=== PATIENT | male | born 1970 | race Hispanic/Latino ===

== ENCOUNTER 2017-02-10 12:14 | Emergency (ER) | payer MEDICAID, OTHER ==
[2017-02-10 12:14] VITALS: BMI 28.3
--- NOTE | 2017-02-10 13:02 | ED PDOC ---
Arrival/HPI <Juan Puri - Last Filed: 02/10/17 15:39> - General Historian: Patient, Spouse - History of Present Illness Time/Duration: < week Symptom Onset: Sudden Symptom Course: Unchanged Quality: Aching, Cramping Severity Level: Mild, Moderate Context: Home <Cassia Garcia - Last Filed: 02/10/17 15:46> - General Chief Complaint: Male Genitourinary Time Seen by Provider: 02/10/17 12:31 - History of Present Illness Narrative History of Present Illness (Text): 02/10/17 12:48 46M w/no sig PMH evaluated for L groin pain & L testicle swelling x 4 days. Pt noted L sided testicular swelling upon self examination, pain with movement/ pressure/loose underwear. Pain shoots into lower abdomen, mild-moderate intensity, crampy in nature. Denies dysuria, hematuria, urinary frequency, penile d/c, back pain, N/V/F/C, SOB, CP, other complaints. PMH: Denies PSH: Denies All: NKDA SH: Admits to tobacco use, 1ppd x 30 yrs; admits to ETOH use- 6 pk/wk; denies illicit drug use; sexually active with only his PMD: Barbara (Cassia Garcia) Past Medical History - Provider Review Nursing Documentation Reviewed: Yes - Past History Past History: No Previous - Infectious Disease Hx of Infectious Diseases: None - Tetanus Immunization Tetanus Immunization: Up to Date - Past Medical History Past Medical History: No Previous - Psychiatric Hx Depression: No Hx Emotional Abuse: No Hx Physical Abuse: No Hx Substance Use: No - Past Surgical History Past Surgical History: No Previous - Suicidal Assessment Feels Threatened In Home Enviroment: No <Cassia Garcia - Last Filed: 02/10/17 15:46> Family/Social History - Physician Review Nursing Documentation Reviewed: Yes Family/Social History: No Known Family HX Hx Substance Use: No <Cassia Garcia - Last Filed: 02/10/17 15:46> Allergies/Home Meds <Juan Puri - Last Filed: 02/10/17 15:39> <Cassia Garcia - Last Filed: 02/10/17 15:46> Allergies/Adverse Reactions: Allergies No Known Allergies Allergy (Verified 08/24/12 18:06) Review of Systems - Physician Review All systems were reviewed & negative as marked: Yes - Review of Systems Constitutional: Normal. absent: Fatigue Eyes: Normal. absent: Vision Changes ENT: Normal. absent: Sore Throat Respiratory: Normal. absent: SOB Cardiovascular: Normal. absent: Chest Pain Gastrointestinal: Normal. absent: Abdominal Pain, Constipation, Diarrhea, Nausea, Vomiting Genitourinary Male: Normal. absent: Dysuria, Frequency, Hematuria, Urinary Output Changes Musculoskeletal: Normal. absent: Back Pain Skin: Normal. absent: Cellulitis Neurological: Normal. absent: Headache <Cassia Garcia - Last Filed: 02/10/17 15:46> Physical Exam Vital Signs Reviewed: Yes Temperature: Afebrile Pulse: Tachycardic Respiratory Rate: Normal Appearance: Positive for: Non-Toxic Pain Distress: None Mental Status: Positive for: Alert and Oriented X 3 - Systems Exam Head: Present: Atraumatic, Normocephalic Extroacular Muscles: Present: EOMI Mouth: Present: Moist Mucous Membranes Nose (External): Present: Atraumatic Neck: Present: Normal Range of Motion Respiratory/Chest: Present: Clear to Auscultation, Good Air Exchange. No: Respiratory Distress, Accessory Muscle Use Cardiovascular: Present: Normal S1, S2, Tachycardic. No: Murmurs Abdomen: Present: Normal Bowel Sounds. No: Tenderness, Distention, Peritoneal Signs, Rebound, Guarding, Hernias Genitourinary Male: Present: Testicle Tenderness (left), Erythema (over left testicle), Testicle Swelling (left). No: Penile Discharge, Penile Swelling, Hernias Upper Extremity: Present: Normal Inspection. No: Cyanosis, Edema Lower Extremity: Present: Normal Inspection. No: Edema Neurological: Present: GCS=15, CN II-XII Intact, Speech Normal Skin: Present: Warm, Dry, Normal Color. No: Rashes Psychiatric: Present: Alert, Oriented x 3, Normal Insight, Normal Concentration <Cassia aGrcia - Last Filed: 02/10/17 15:46> Vital Signs Temp Pulse Resp BP Pulse Ox 02/10/17 14:03 98 H 18 138/75 99 02/10/17 12:14 98.3 F 107 H 18 98 Medical Decision Making - Lab Interpretations I have reviewed the lab results: Yes - RAD Interpretation Gig Tender: Radiologist <Juan Puri - Last Filed: 02/10/17 15:39> - Lab Interpretations I have reviewed the lab results: Yes - RAD Interpretation Gig Tender: Radiologist <Cassia Garcia - Last Filed: 02/10/17 15:46> ED Course and Treatment: 02/10/17 In agreement with resident note, which includes further HPI details. Patient was seen and evaluated with resident, came up with plan and treatment together. Patient is a 46 year old male, who reports having testicular pain and swelling for the past 4 days. On exam, there is no inguinal hernia noted. Denies trauma. Denies unprotected sex. He reports single partner.He has mild scrotal swelling and a firm mass which is palpated in inferior portion of left testicle. Patient denies fever, chills, weight loss, night sweats, dysuria, hematuria, or abdominal pain. The plan is to obtain ultrasound and urology consultation. 02/10/17 15:39 Ultrasound report reviewed with patient. Stressed need for urology follow-up, on -call urologist paged and he will be given follow-up numbers. Limitations of ultrasound reviewed with patient, stressed need for follow-up for any worsening of new or persistent symptoms. (Juan Puri) 02/10/17 13:10 Pt seen/evaluated with attending, will evaluate for infection vs. torsion vs. mass of L testicle 02/10/17 14:04 Pt taken to U/S for evaluation. 02/10/17 15:30 U/s positive for epididymitis- will d/c on antibiotic w/referral to urology. ( Cassia Garcia) - Lab Interpretations Lab Results: 02/10/17 13:43 02/10/17 13:43 Lab Results 02/10/17 13:43: Sodium 143, Potassium 4.1, Chloride 104, Carbon Dioxide 27, Anion Gap 16, BUN 15, Creatinine 0.8, Est GFR ( Amer) > 60, Est GFR (Non- Af Amer) > 60, Random Glucose 89, Calcium 10.2, Total Bilirubin 0.7, AST 42, ALT 33, Alkaline Phosphatase 106, Total Protein 8.0, Albumin 4.5, Globulin 3.5, Albumin/Globulin Ratio 1.3 02/10/17 13:43: Urine Color Straw, Urine Appearance Clear, Urine pH 6.0, Ur Specific Mora <= 1.005, Urine Protein Negative, Urine Glucose (UA) Negative, Urine Ketones Negative, Urine Blood Moderate H, Urine Nitrate Negative, Urine Bilirubin Negative, Urine Urobilinogen 0.2, Ur Leukocyte Esterase Negative, Urine RBC 0 - 2, Urine WBC 0 - 2, Ur Epithelial Cells 0 - 2, Urine Bacteria Neg 02/10/17 13:43: WBC 8.4, RBC 5.00, Hgb 15.8, Hct 43.6, MCV 87.2, MCH 31.6, MCHC 36.2, RDW 13.1, Plt Count 293, MPV 8.5, Gran % 64.9, Lymph % (Auto) 23.9, Jones % (Auto) 6.7 H, Eos % (Auto) 3.8, Baso % (Auto) 0.7, Gran # 5.43, Lymph # 2.0, Jones # 0.6, Eos # 0.3, Baso # 0.06 - RAD Interpretation Narrative RAD Interpretations (Text): 02/10/17 15:3 No intratesticular pathology. Abnormal left epididymal tail -consistent with epididymitis. Incidental right epididymal head small cyst Bilateral hydroceles (Cassia Garcia) Radiology Orders: 02/10/17 13:03 TESTES DUPLEX COMPLETE [US] Stat - Medication Orders Current Medication Orders: Levofloxacin (Levaquin) 500 mg PO STAT STA Stop: 02/10/17 15:43 Discontinued Medications Ibuprofen (Motrin Tab) 600 mg PO STAT STA Stop: 02/10/17 13:06 Last Admin: 02/10/17 15:41 Dose: MAR Pain/Vitals Document 02/10/17 15:41 AB (Rec: 02/10/17 15:41 AB [id number]) Pain Reassessment Is This A Pain ReAssessment? No Presence of Pain Presence of Pain No - PA / HEALTH CARE LIAISON / Resident Statement MD/DO has reviewed & agrees with the documentation as recorded. MD/DO has examined the patient and agrees with the treatment plan. - Scribe Statement The provider has reviewed the documentation as recorded by the Scribe <Juan Puri - Last Filed: 02/10/17 15:39> <Cassia Garcia - Last Filed: 02/10/17 15:46> - Scribe Statement Mony Carter Provider Scribe Attestation: All medical record entries made by the Scribe were at my direction and personally dictated by me. I have reviewed the chart and agree that the record accurately reflects my personal performance of the history, physical exam, medical decision making, and the department course for this patient. I have also personally directed, reviewed, and agree with the discharge instructions and disposition. (Juan Puri) Disposition/Present on Arrival <Juan Puri - Last Filed: 02/10/17 15:39> - Present on Arrival Any Indicators Present on Arrival: No History of DVT/PE: No History of Uncontrolled Diabetes: No Urinary Catheter: No History Surgical Site Infection Following: None - Disposition Have Diagnosis and Disposition been Completed?: Yes Disposition Time: 15:29 Patient Plan: Discharge <Cassia Garcia - Last Filed: 02/10/17 15:46> - Disposition Diagnosis: Epididymitis Disposition: HOME/ ROUTINE Patient Problems: Current Active Problems Problem Status Onset Left ankle sprain Acute Condition: STABLE Discharge Instructions (ExitCare): Epididymitis (ED), Epididymo-orchitis (ED), Testicle Pain (ED) Prescriptions: Levofloxacin [Levaquin] 500 mg PO DAILY #9 tablet Naproxen [Naprosyn] 250 mg PO Q4H PRN #28 tablet PRN Reason: Pain, Moderate (4-7) Referrals: Ezekiel Jimenez MD [Primary Care Provider] - Follow up with primary [facility] [Outside] - Follow up with primary Petar Hardin MD [Staff Provider] - Follow up with primary Forms: [facility] [facility] (B[place]i), WORK NOTE
[2017-02-10 13:46] LABS: BASO # 0.06 K/mm3 (0.0-2.0); BASO % 0.7 % (0.0-3.0); EOS # 0.3 (0.0-0.7); EOS % 3.8 % (1.5-5.0); GRAN # 5.43 (1.4-6.5); GRAN % 64.9 % (50.0-68.0); HEMATOCRIT 43.6 % (42.0-52.0); LYMPH % 23.9 % (22.0-35.0); MEAN CELL VOLUME 87.2 fl (80.0-105.0); MEAN CORPUSCULAR HEMOGLOBIN 31.6 pg (25.0-35.0); MEAN CORPUSCULAR HGB CONC 36.2 g/dl (31.0-37.0); MEAN PLATELET VOLUME 8.5 fl (7.0-11.0); MONO # 0.6 (0.1-0.6); MONO % 6.7 % (1.0-6.0); RED CELL DISTRIBUTION WIDTH 13.1 % (11.5-14.5); WHITE BLOOD COUNT 8.4 10^3/ul (4.5-11.0)
[2017-02-10 13:47] LABS: URINE BILIRUBIN NEGATIVE (NEGATIVE); URINE BLOOD MODERATE (NEGATIVE); URINE GLUCOSE (UA) NEGATIVE (NEGATIVE); URINE KETONE NEGATIVE (NEGATIVE); URINE LEUKOCYTE ESTERASE NEGATIVE Leu/uL (NEGATIVE); URINE PROTEIN NEGATIVE mg/dL (<30 mg/dL); URINE UROBILINOGEN 0.2 E.U./dL (<1 E.U./dL)
[2017-02-10 13:50] LABS: URINE APPEARANCE CLEAR (CLEAR); URINE COLOR STRAW (YELLOW)
[2017-02-10 13:54] LABS: URINE BACTERIA NEG (NEG); URINE EPITHELIAL CELLS 0 - 2 /hpf (0-5); URINE RBC 0 - 2 /hpf (0-2); URINE WBC 0 - 2 /hpf (0-6)
[2017-02-10 13:56] LABS: ALB/GLOB RATIO 1.3 (1.1-1.8); ALKALINE PHOSPHATASE 106 U/L (38-126); ALT/SGPT 33 U/L (7-56); AST/SGOT 42 U/L (17-59); BILIRUBIN,TOTAL 0.7 mg/dL (0.2-1.3); BLOOD UREA NITROGEN 15 mg/dL (7-21); CALCIUM 10.2 mg/dL (8.4-10.5); CARBON DIOXIDE 27 mmol/L (21-33); CHLORIDE 104 mmol/L (98-107); GFR AFRICAN-AMERICAN > 60; GLUCOSE,RANDOM 89 mg/dL (70-110); POTASSIUM 4.1 mmol/L (3.6-5.0); SODIUM 143 mmol/L (132-148)
[2017-02-10 14:04] VITALS: BP 138/75
--- NOTE | 2017-02-10 15:02 | US ---
HISTORY: L testicular swelling/mass TECHNIQUE: Realtime sonography through the scrotum with color and doppler flow. COMPARISON: None Available. FINDINGS: RIGHT TESTICLE: Measures 4.6 x 2.6 x 3 point cm. Normal echotexture and flow. RIGHT EPIDIDYMIS: Epididymal head measures 6 x 10 x 4 mm. normal flow. Right epididymal head cyst 4.4 x 4.2 x 4.6mm LEFT TESTICLE: Measures 3.4 x 2.4 x 2.9 cm. Normal echotexture and flow. LEFT EPIDIDYMIS: Epididymal head measures 5 x 9 x 8 mm. The epididymal tail is abnormally prominent and heterogeneous with abnormal diffuse increased flow throughout it. This epididymal tail area of altered echotexture measures 3.0 x 1.9 x 1.8 cm and is consistent with a epididymitis HYDROCELE: Bilateral hydroceles VARICOCELE: None. OTHER FINDINGS: None. IMPRESSION: No intratesticular pathology. Abnormal left epididymal tail -consistent with epididymitis. Incidental right epididymal head small cyst Bilateral hydroceles
[2017-02-10] MEDS ORDERED: levoFLOXacin 500 MG TAB PO STA (15:42)
[2017-02-10 16:25] VITALS: PULSE 88; RESP 17; TEMP 98.6; O2SAT 100
== END 2017-02-10 16:00 | disposition home or self-care (01) ==
LOC: ED 12:14
DX: N45.1 Epididymitis (principal)

== ENCOUNTER 2018-05-23 21:40 | Emergency (ER) | payer MEDICAID, OTHER ==
[2018-05-23 22:10] VITALS: RESP 18; BMI 28.8
[2018-05-23] MEDS ORDERED: Lidocaine 5% Patch TD STA (23:17)
--- NOTE | 2018-05-23 23:50 | ED PDOC ---
Arrival/HPI - General Chief Complaint: Back Pain Time Seen by Provider: 05/23/18 21:52 Historian: Patient - History of Present Illness Narrative History of Present Illness (Text): 05/23/18 23:56 47 yo M reports pain in the lower back, beginning at 3pm after he stood up from laying on his side, since then the pain is worse with movement, when he changes position, is better when he stands. Otherwise: (-) trauma, (-) injury, (-) heavy lifting, (-) medications for symptoms, (-) paresthesias, (-) weakness, (-) acute bowel or bladder dysfunction, (-) urinary symptoms, (-) fever. Has no history of prior back problem. REGGIED Barbara Past Medical History - Past History Past History: No Previous - Infectious Disease Hx of Infectious Diseases: None - Tetanus Immunization Tetanus Immunization: Up to Date - Past Medical History Past Medical History: No Previous - Psychiatric Hx Depression: No Hx Emotional Abuse: No Hx Physical Abuse: No Hx Substance Use: No - Past Surgical History Past Surgical History: No Previous - Anesthesia Hx Anesthesia: No Hx Anesthesia Reactions: No Hx Malignant Hyperthermia: No - Suicidal Assessment Feels Threatened In Home Enviroment: No Family/Social History Family/Social History: No Known Family HX Smoking Status: Heavy Smoker > 10 Cigarettes Daily Hx Alcohol Use: Yes Frequency of alcohol use: Socially Hx Substance Use: No Allergies/Home Meds Allergies/Adverse Reactions: Allergies No Known Allergies Allergy (Verified 08/24/12 18:06) Review of Systems - Review of Systems Constitutional: absent: Fatigue, Fevers Cardiovascular: absent: Chest Pain, Palpitations Gastrointestinal: absent: Abdominal Pain, Nausea, Vomiting Genitourinary Male: absent: Dysuria, Frequency Musculoskeletal: Back Pain. absent: Arthralgias, Neck Pain Skin: absent: Rash, Pruritis, Skin Lesions Neurological: absent: Headache, Dizziness Physical Exam - Physical Exam Narrative Physical Exam (Text): 05/23/18 23:58 GENERAL APPEARANCE: Patient is awake, alert, oriented x 3, in mild painful distress. SKIN: Warm, dry; (-) cyanosis. EYES: (-) conjunctival pallor. ENMT: Mucous membranes moist. NECK: (-) tenderness, (-) stiffness, (-) lymphadenopathy. CHEST AND RESPIRATORY: (-) rales, (-) rhonchi, (-) wheezes; breath sounds equal bilaterally. HEART AND CARDIOVASCULAR: (-) irregularity; (-) murmur, (-) gallop. ABDOMEN AND GI: Soft; (-) tenderness; (-) palpable mass. BACK: (+) mild paralumbar area, (+) mild spasm, (-) direct bony tenderness, (-) deformity. Straight leg raising (-) bilaterally. EXTREMITIES: (-) deformity. Distal pulses good bilaterally. NEURO AND PSYCH: Mental status as above. Intact sensation bilaterally; normal strength in extension of the knees, plantar and dorsiflexion of the toes. DTRs symmetric. Vital Signs Temp Pulse Resp BP Pulse Ox 05/23/18 21:47 97.9 F 77 18 143/96 H 98 Medical Decision Making ED Course and Treatment: 05/23/18 23:59 Plan : - toradol IM - flexeril PO - lidoderm patch On reevaluation, patient reports that pain is improving.On exam, patient remains awake alert and oriented 3 in no acute distress. Repeat neuro exam shows no focal findings. Patient able to ambulate with a normal gait. Advised to follow up with primary care physician in 1-2 days without fail. Advised to take medication as prescribed. Return to the emergency room at any time for any new or worsening symptoms. Patient states he fully agrees with and understands discharge instructions. States that he agrees with the plan and disposition. Verbalized and repeated discharge instructions and plan. I have given the patient opportunity to ask any additional questions. - Medication Orders Current Medication Orders: Discontinued Medications Cyclobenzaprine HCl (Flexeril) 10 mg PO STAT STA Stop: 05/23/18 23:18 Last Admin: 05/23/18 23:37 Dose: 10 mg Ketorolac Tromethamine (Toradol) 60 mg IM STAT STA Stop: 05/23/18 23:18 Last Admin: 05/23/18 23:37 Dose: 60 mg MAR Pain Assessment Document 05/23/18 23:37 ITZ (Rec: 05/23/18 23:38 ITZ [id number]) Pain Reassessment Is this a pain reassessment? Yes Sleep Is patient sleeping during reassessment? No Presence of Pain Presence of Pain Yes Location Upper or Lower Lower Pain Location Body Site Back Description Description Constant Intensity of Pain at present 7 IM Administration Charges Document 05/23/18 23:37 RG (Rec: 05/23/18 23:38 RG [id number]) Injection Site MAR Injection Site Right Gluteus Medius Charges for Administration # of IM Administrations 1 Lidocaine (Lidoderm) 1 ea TD STAT STA Stop: 05/23/18 23:18 Last Admin: 05/23/18 23:37 Dose: 1 ea MAR Transdermal Patch Site Document 05/23/18 23:37 (Rec: 05/23/18 23:37 [id number]) Transdermal Patch Site Transdermal Patch Site Left Lower Back - PA / MEDICAL ANTHROPOLOGY DIRECTOR / Resident Statement MD/DO has reviewed & agrees with the documentation as recorded. Disposition/Present on Arrival - Present on Arrival Any Indicators Present on Arrival: No History of DVT/PE: No History of Uncontrolled Diabetes: No Urinary Catheter: No History of Decub. Ulcer: No History Surgical Site Infection Following: None - Disposition Have Diagnosis and Disposition been Completed?: Yes Diagnosis: Low back pain Disposition: HOME/ ROUTINE Disposition Time: 00:00 Patient Plan: Discharge Patient Problems: Current Active Problems Problem Status Onset Low back pain Acute Condition: STABLE Discharge Instructions (ExitCare): Low Back Pain in Adults Additional Instructions: Thank you for letting us take care of you today. You were treated for low back pain. The emergency medical care you received today was directed at your acute symptoms. If you were prescribed any medication, please fill it and take as directed. It may take several days for your symptoms to resolve. Return to the Emergency Department if your symptoms worsen, do not improve, or if you have any other problems. Please contact your doctor in 2 days for re-evaluation and follow up. Bring any paperwork you were given at discharge with you along with any medications you are taking to your follow up visit. Our treatment cannot replace ongoing medical care by a primary care provider (PCP) outside of the emergency department. Thank you for allowing the [facility] team to be part of your care today. Prescriptions: Cyclobenzaprine [Cyclobenzaprine HCl] 10 mg PO TID PRN #15 tab PRN Reason: Muscle Spasm Meloxicam [Mobic] 15 mg PO DAILY #30 tab Forms: [employer] [facility] ([place]), WORK NOTE
[2018-05-24 00:38] VITALS: BP 140/87; PULSE 70; TEMP 97.8; O2SAT 97
== END 2018-05-24 00:32 | disposition home or self-care (01) ==
LOC: ED 21:40
DX: M54.5 Low back pain (principal)
CPT/HCPCS: 96372; 99283; J1885